=== PATIENT | male | born 1985 | race African-American/Black ===

== ENCOUNTER 2017-03-17 21:08 | Emergency (ER) | payer OTHER ==
[2017-03-17 21:24] VITALS: BP 127/105
--- NOTE | 2017-03-17 22:54 | ER Document Report ---
ED Wound - General Chief Complaint: Laceration Stated Complaint: LACERATION LFT INDEX FNGER Time Seen by Provider: 03/17/17 22:31 Mode of Arrival: Ambulatory Information source: Patient - HPI Patient complains to provider of: Laceration Occurred: Just prior to arrival Onset/Duration: Sudden Quality of pain: Achy Severity: Mild Pain Level: 1 Context: Injury Skin Color: Normal Capillary refill: < 3 seconds Sensations intact: Yes Distal pulses present: Yes Associated Symptoms: None Notes: Patient is a 31-year-old male presenting to the emergency room today complaining of laceration to the palmar surface of his left index finger that occurred just prior to arrival, states he was using a knife to fix something on his [employer], because he did not have a screwdriver small enough to do so, the knife slipped causing the injury to his finger, he is an [employer] duty [employer] and his tetanus shot is up-to-date, denies injury or pain elsewhere - Related Data Allergies/Adverse Reactions: No Known Allergies Allergy (Unverified 03/17/17 21:17) Past Medical History - General Information source: Patient - Social History Smoking Status: Never Smoker Family History: Reviewed & Not Pertinent Renal/ Medical History: Denies: Hx Peritoneal Dialysis Review of Systems - Review of Systems Constitutional: No symptoms reported EENT: No symptoms reported Cardiovascular: No symptoms reported Respiratory: No symptoms reported Gastrointestinal: No symptoms reported Genitourinary: No symptoms reported Male Genitourinary: No symptoms reported Musculoskeletal: No symptoms reported Skin: See HPI Hematologic/Lymphatic: No symptoms reported Neurological/Psychological: No symptoms reported -: Yes All other systems reviewed and negative Physical Exam - Vital signs Vitals: Temp Pulse Resp BP Pulse Ox 98.3 F 53 L 18 127/105 H 100 03/17/17 21:18 03/17/17 21:18 03/17/17 21:18 03/17/17 21:18 03/17/17 21:18 - Notes Notes: - General General appearance: Appears well, Alert In distress: None - HEENT Head: Normocephalic, Atraumatic Eyes: Normal Conjunctiva: Normal Extraocular movements intact: Yes Eyelashes: Normal Pupils: PERRL - Respiratory Respiratory status: No respiratory distress - Cardiovascular Rhythm: Regular - Abdominal Inspection: Normal - Back Back: Normal - Extremities General upper extremity: On the distal palmar surface of the left index finger is a superficial L-shaped flap laceration, capillary refill is less than 3 seconds, distal sensation and motor is intact General lower extremity: Normal inspection - Neurological Neuro grossly intact: Yes Orientation: AAOx4 Jenni Coma Scale Eye Opening: Spontaneous Jenni Coma Scale Verbal: Oriented Jenni Coma Scale Motor: Obeys Commands [place] Coma Scale Total: 15 - Psychological Associated symptoms: Normal affect, Normal mood - Skin Skin Temperature: Warm Skin Moisture: Dry Skin Color: Normal Course - Re-evaluation Re-evalutation: 03/17/17 23:48 Wound was cleaned and repaired using Dermabond, a finger splint was placed to ensure that patient does not tear the wound open, tetanus shot is up-to-date, he was given instructions for follow-up and advised to return if any additional concerns, patient acknowledges understanding and agreement with this plan - Vital Signs Vital signs: Temp Pulse Resp BP Pulse Ox 98.3 F 53 L 18 127/105 H 100 03/17/17 21:18 03/17/17 21:18 03/17/17 21:18 03/17/17 21:18 03/17/17 21:18 Procedures - Laceration/Wound Repair Left Hand 2nd digit Time completed: 23:48 Wound length (cm): 2 Wound's Depth, Shape: Superficial, Flap Laceration pre-procedure: Sterile PPE donned Wound explored: Clean Irrigated w/ Saline (mLs): 400 Wound Repaired With: Dermabond Hands front picture: 1 - 2 cm superficial L shaped laceration Discharge - Discharge Clinical Impression: Finger laceration Qualifiers: Encounter type: initial encounter Finger: index finger Damage to nail status: without damage Foreign body presence: without foreign body Laterality: left Qualified Code(s): S61.211A - Laceration without foreign body of left index finger without damage to nail, initial encounter Condition: Stable Disposition: HOME, SELF-CARE Instructions: Skin Adhesive Closure ([facility]), Temporary Splint ([facility]) Additional Instructions: Follow up with your primary care provider in one to 2 days. Return to the emergency room immediately if symptoms worsen or any additional concerns.
== END 2017-03-17 23:09 | disposition home or self-care (01) ==
LOC: ER 21:08
PROC: 0HQGXZZ Repair Left Hand Skin, External Approach (ICD-10-PCS; principal; 2017-03-17)
DX: S61.211A Laceration without foreign body of left index finger without damage to nail, initial encounter (principal); W26.0XXA Contact with knife, initial encounter
CPT/HCPCS: 99283